=== PATIENT | male | born 1975 | race African-American/Black ===

== ENCOUNTER → 2017-01-05 | Outpatient (CLI) | payer OTHER, MEDICAID ==
[2016-10-05 01:35] VITALS: BP 110/71
== END ==
LOC: RAD 11:58
PROVIDERS: ATTEND Nurse Practitioner Family
DX: M54.5 Low back pain (principal); M25.551 Pain in right hip; R26.89 Other abnormalities of gait and mobility; M51.37 Other intervertebral disc degeneration, lumbosacral region
CPT/HCPCS: 72100; 73501

== ENCOUNTER → 2017-10-14 | Outpatient (CLI) | payer OTHER, MEDICAID ==
[2016-10-05 01:35] VITALS: BP 110/71
--- NOTE | 2017-10-14 12:07 | RAD ---
Examination: Cervical spine, five views History: Pain in neck and right shoulder Findings: There is straightening of the normal curvature. Disc space narrowing with marginal osteophy te formation noted at multiple levels, especially C4-5-6. Alignment is normal. There is arthritic def ormity of the lower uncinate processes. Osteophytes impinge on the left neural foramina at C4-5-6. Th e odontoid is intact. Impression: 1. Multilevel degenerative disc disease, spondylosis and uncinate process osteoarthritis. 2. Degenerative narrowing of left neural foramina at C4-6. 3. Alteration in cervical curvature may reflect neck pain or muscle spasm. Reported By:
== END ==
LOC: RAD 09:51
PROVIDERS: ATTEND Internal Medicine
DX: M54.2 Cervicalgia (principal); M50.321 Other cervical disc degeneration at C4-C5 level
CPT/HCPCS: 72050

== ENCOUNTER → 2017-12-09 | Outpatient (CLI) | payer OTHER, MEDICAID ==
[2016-10-05 01:35] VITALS: BP 110/71
--- NOTE | 2017-12-09 17:33 | MRI ---
MR left shoulder without contrast Indication: Left shoulder pain and popping Comparison: No recent priors Technique: Multiplanar multi sequence imaging through the left shoulder without contrast Findings: Bone marrow signal is normal. There is mild AC joint degenerative change. Mild glenohumeral DJD seen. No muscle belly atrophy seen. Neurovascular structures are normal. There is trace subacromial/subdeltoid bursal fluid. There is mild supraspinatus and infraspinatus ten dinosis. Subscapularis is intact. Intraarticular biceps tendon is normal. There is edema at the anter ior greater tuberosity combo with small focal tear at the footprint of the supraspinatus seen on thor nal image [id number], compatible with low-grade articular surface footprint tear. High intrasubstance signal is seen at the the posterior supraspinatus/anterior infraspinatus junction on coronal images 11 thro ugh 9 common possibly reflecting small intrasubstance tear. Tendinosis would appear similarly. There is motion artifact on the axial series, but there is no displaced glenoid labrum tear seen. Mil d fraying of the superior glenoid labrum noted. Impression: 1. Focal articular sided footprint tear of the anterior supraspinatus with adjacent subchondral edema . 2. Intrasubstance tearing versus tendinosis of the anterior infraspinatus/posterior supraspinatus. 3. Mild AC joint degenerative changes subacromial/subdeltoid mild bursitis. Mild degenerative glenoid labrum fraying without displaced tear. Reported By:
== END | disposition home or self-care (01) | DRG 556 ==
LOC: RAD 13:48
PROVIDERS: ATTEND Internal Medicine
DX: M25.512 Pain in left shoulder (principal); M19.012 Primary osteoarthritis, left shoulder
CPT/HCPCS: 73221